=== PATIENT | male | born 1960 | race Caucasian/White ===

== ENCOUNTER 2024-02-09 15:09 | Outpatient (REF) | payer BC, SELFPAY ==
[2024-02-09 15:07] LABS: BE 18 mmol/L (-2-3); HCO3 43 mmol/L (22-26); pH 7.37 (7.35-7.45); pO2 75 mmHg (80-105); sO2 96 % (95-98); tCO2 39 mmol/L (23-27)
[2024-02-09 15:08] LABS: FIO2L 2 L; Site Right Radial; pCO2 75 mmHg (35-45)
[2024-02-09 15:35] LABS: Abs Immature Grans 0.08 10^3/uL (0.0-0.06); Absolute Basophil Count 0.03 10^3/uL (0.0-0.2); Absolute Eosinophil Count 0.01 10^3/uL (0.0-0.7); Absolute Lymphocyte Count 0.49 10^3/uL (1.2-3.4); Absolute Monocyte Count 1.05 10^3/uL (0.1-0.8); Basophils % 0.2 %; Eosinophils % 0.1 %; HCT 45.7 % (40.0-50.0); HGB 14.8 g/dL (13.5-17.5); Immature Grans % 0.6 %; Lymphocytes % 3.5 %; MCH 33.6 pg (27.0-33.0); MCHC 32.4 % (32.0-36.0); MCV 104 fL (80-95); MPV 9.8 fL (8.0-11.0); Monocytes % 7.6 %; Platelet Count 296 10^3/uL (130-400); RBC 4.41 10^6/uL (4.36-5.78); RDW 12.7 % (11.8-14.1); RDW-SD 48.8 fL; WBC 13.86 10^3/uL (4.4-10.8)
[2024-02-09 15:47] LABS: ALT 57 U/L (16-63); AST 17 U/L (15-37); Albumin 3.4 g/dL (3.4-5.0); Alkaline Phosphatase 94 U/L (46-116); Anion Gap 1.4 mmol/L (3-11); BUN 19 mg/dL (7-18); CO2 43.6 mmol/L (21.0-32.0); CREATININE 0.6 mg/dL (0.70-1.30); Calcium 9.6 mg/dL (8.5-10.1); Chloride 103 mmol/L (98-107); Estimated GFR 109.14 (mL/min/1.73m2); Glucose 122 mg/dL (74-106); Potassium 5.1 mmol/L (3.5-5.1); Sodium 148 mmol/L (136-145); Total Protein 6.6 g/dL (6.4-8.2)
[2024-02-09 16:08] LABS: NT-proBNP 908 pg/mL (<300)
== END 2024-02-09 15:10 | disposition home or self-care (01) ==
LOC: LBN 15:09
PROVIDERS: PCP Internal Medicine; Visit Provider Physician Assistant Surgical
DX: J44.1 Chronic obstructive pulmonary disease with (acute) exacerbation
CPT/HCPCS: 80053; 82805; 83880; 85025